=== PATIENT | female | born 1935 | race Caucasian/White ===

== ENCOUNTER 2022-04-15 05:03 | Emergency (ER) | payer OTHER ==
[~2022-04-15] VITALS: Ht 154.9 cm; Wt 54.4 kg
--- NOTE | 2022-04-15 05:40 | NUR ---
BIB 878 FROM HOME FOR C/O R FEMUR PAIN S/P GLF WHILE PUTTING ON PANTS. DENIES HITTING HEAD -LOC. AWAKE AND ALERT X4 BREATHING EVEN AND UNLABORED. AWAITING MD LIU.
--- NOTE | 2022-04-15 05:46 | NUR ---
xray at bedside
--- NOTE | 2022-04-15 06:18 | NUR ---
BRISA EPRP PAGED PER DR MOFFETT.
--- NOTE | 2022-04-15 06:34 | NUR ---
20G IV ESTABLISHED AT . SALINE LOCKED.
--- NOTE | 2022-04-15 06:34 | NUR ---
JUDD COLLECTED AND SENT TO LAB
--- NOTE | 2022-04-15 08:00 | NUR ---
CARE ASSUME, A, A AND O X4. SON AT BEDSIDE. VSS.
[2022-04-15 08:28] LABS: CALCIUM, SERUM 8.8 mg/dL (8.5-10.1); CREATININE 0.9 mg/dL (0.6-1.3); POTASSIUM 3.6 mmol/L (3.5-5.1)
[2022-04-15 08:32] LABS: BASOPHILS % (AUTO) 0.2 % (0.0-2.0); EOSINOPHILS % (AUTO) 0.3 % (0.0-6.0); HEMATOCRIT 35 % (33-45); HEMOGLOBIN 11.8 g/dL (11.5-14.8); LYMPHOCYTES # (AUTO) 0.5 K/uL (0.8-4.8); LYMPHOCYTES % (AUTO) 5.8 % (20.0-44.0); MEAN CORPUSCULAR HGB CONC 34 g/dl (31.0-36.0); MEAN CORPUSCULAR VOLUME 92 fL (82-100); MONOCYTES # (AUTO) 0.4 K/uL (0.1-1.30); MONOCYTES % (AUTO) 5.2 % (2.0-12.0); NEUTROPHILS # (AUTO) 7.1 K/uL (1.8-8.9); NEUTROPHILS % (AUTO) 88.5 % (43.0-81.0); PLATELET COUNT (AUTO) 220 K/uL (150-450)
--- NOTE | 2022-04-15 09:25 | NUR ---
Transfer information: Accepted to: [facility] Accepting MD: JIMMY Phone for Report: [phone] ETA: [phone] [phone]
--- NOTE | 2022-04-15 09:55 | NUR ---
REPORTS PAIN 02/07,MD NOTIFIED AND SODIUM LEVEL LOW AND MD AWARE.
[2022-04-15] MEDS ORDERED: MORPHINE SULFATE INJ 2 MG/ML DISP.SYRIN IV ONE (10:00)
[2022-04-15] MEDS ORDERED: MORPHINE SULFATE INJ 4 MG/ML DISP.SYRIN ONE (10:14)
--- NOTE | 2022-04-15 10:50 | NUR ---
REPORT GIVEN TO GILBERT FERRARA,CHARGE NURSE [facility] AT [phone]
--- NOTE | 2022-04-15 10:55 | NUR ---
REPORT GIVEN TO GILBERT FERRARA MANNEQUIN COLORING ARTIST ED [facility] AND ACCEPTING PHYSICIAN DR. MARQUEZ.
[2022-04-15 11:00] VITALS: BP 94/59
== END 2022-04-15 10:55 | disposition short-term general hospital (02) ==
LOC: ER 05:09
DX: S72.121A Displaced fracture of lesser trochanter of right femur, initial encounter for closed fracture (principal); W18.39XA Other fall on same level, initial encounter; Y92.89 Other specified places as the place of occurrence of the external cause; E78.5 Hyperlipidemia, unspecified; I10 Essential (primary) hypertension; E87.1 Hypo-osmolality and hyponatremia; Z96.642 Presence of left artificial hip joint; Z20.822 Contact with and (suspected) exposure to COVID-19
CPT/HCPCS: 99291; 96374; 87426; 73552; 85025; 80048; 36415; 85730; J2270; J7040; C9803